=== PATIENT | male | born 1975 | race Caucasian/White ===

== ENCOUNTER 2018-05-01 19:00 | Outpatient (REF) | payer OTHER, SELFPAY ==
[2018-05-01 19:50] LABS: COMMENT (LAB VIEW ONLY) 142.09 mg/dL; Microalb ug/mg Crea 142.7 ug/mg Cr
== END 2018-05-01 19:20 ==
LOC: LBN 19:00
PROVIDERS: PCP Nurse Practitioner Family; Visit Provider Nurse Practitioner Family
DX: N18.9 Chronic kidney disease, unspecified (principal)
CPT/HCPCS: 82043; 82570

== ENCOUNTER 2018-05-30 01:36 | Outpatient (CLI) | payer OTHER, SELFPAY ==
[2018-05-30 12:26] LABS: Abs Immature Grans 0.02 k/cumm (0.0-0.09); Absolute Basophil Count 0.02 k/cumm (0.0-0.2); Absolute Eosinophil Count 0.09 k/cumm (0.0-0.7); Absolute Lymphocyte Count 1.45 k/cumm (1.2-3.4); Absolute Monocyte Count 0.47 k/cumm (0.11-0.7); Absolute Neutrophil Count 4.36 k/cumm (1.2-6.7); Basophils % 0.3; Eosinophils % 1.4; HCT 44.9 % (40.0-50.0); HGB 15.2 g/dL (13.5-17.5); Immature Grans % 0.3; Lymphocytes % 22.6; Mean Corp. HGB Concentration 33.9 g/dL (32.0-36.0); Mean Corpuscular Volume 85.7 fL (80-95); Mean Platelet Volume 11.4 fL (8.0-11.0); Monocytes % 7.3; Neutrophils % 68.1; Platelet Count 165 x1000/uL (130-400); RBC 5.24 m/cumm (4.50-6.00); RBC Distribution Width 13.6 % (11.8-14.1); White Blood Cell Count 6.41 k/cumm (4.4-10.8)
[2018-05-30 12:56] LABS: ALT 53 U/L (12-78); AST 31 U/L (15-37); Albumin 4.2 g/dL (3.4-5.0); Alkaline Phosphatase 76 U/L (46-116); Anion Gap 11.8 mmol/L (3-11); BUN 25 mg/dL (7-18); Bilirubin, Total 0.5 mg/dL (0.2-1.0); CO2 27.2 mmol/L (21.0-32.0); Calcium 9.7 mg/dL (8.5-10.1); Chloride 101 mmol/L (98-107); Cholesterol 264 mg/dL (50-200); Glucose 110 mg/dL (70-100); HDL Cholesterol 53 mg/dL (40-60); LDL CHOLESTEROL 192 mg/dL (<100); Potassium 4.7 mmol/L (3.5-5.1); Sodium 140 mmol/L (136-145); TSH 2.36 uIU/mL (0.358-3.74); Total Protein 7.7 g/dL (6.4-8.2); Triglyceride 120 mg/dL (30-150)
[2018-05-30 13:15] LABS: Hemoglobin A1C 6.5 % (4.5-6.2)
[2018-05-30 13:17] LABS: FREE T4 1.05 ng/dL (0.76-1.46)
== END 2018-05-30 01:56 ==
PROVIDERS: PCP Nurse Practitioner Family; Visit Provider Nurse Practitioner Family
DX: Z00.00 Encounter for general adult medical examination without abnormal findings (principal); E78.5 Hyperlipidemia, unspecified; N18.9 Chronic kidney disease, unspecified; R73.03 Prediabetes
CPT/HCPCS: 36415; 80053; 80061; 83721; 83036; 84439; 84443; 85025

== ENCOUNTER 2018-06-23 08:50 | Outpatient (CLI) | payer OTHER, SELFPAY ==
[2018-06-23 13:49] LABS: Anion Gap 10.4 mmol/L (3-11); BUN 17 mg/dL (7-18); CO2 26.6 mmol/L (21.0-32.0); CREATININE 1.36 mg/dL (0.70-1.30); Calcium 9.4 mg/dL (8.5-10.1); Chloride 103 mmol/L (98-107); Estimated GFR 56.67 (mL/min/1.73m2); Glucose 111 mg/dL (70-100); Potassium 4.2 mmol/L (3.5-5.1); Sodium 140 mmol/L (136-145)
== END 2018-06-23 09:10 ==
PROVIDERS: PCP Nurse Practitioner Family; Visit Provider Nurse Practitioner Family
DX: N18.9 Chronic kidney disease, unspecified (principal)
CPT/HCPCS: 36415; 80048

== ENCOUNTER 2018-09-05 02:21 | Outpatient (CLI) | payer OTHER, SELFPAY ==
--- NOTE | 2018-09-05 10:50 | DI.US_ITS ---
SYMPTOMS/DIAGNOSIS: LEFT TESTICULAR PAIN X 1 MONTH, N50.812, LIFTING INJURY IN JUNE LEFT INGUINAL ULTRASOUND: No hernia is identified. No adenopathy or fluid collection is seen. IMPRESSION: Negative left inguinal ultrasound.
== END 2018-09-05 02:41 ==
PROVIDERS: PCP Nurse Practitioner Family; Visit Provider Nurse Practitioner Family
DX: N50.812 Left testicular pain (principal)
CPT/HCPCS: 76857

== ENCOUNTER 2018-11-27 09:36 | Outpatient (CLI) | payer OTHER, SELFPAY ==
[2018-11-27 11:02] LABS: Hemoglobin A1C 6.2 % (4.5-6.2)
[2018-11-27 11:07] LABS: Anion Gap 13.3 mmol/L (3-11); BUN 16 mg/dL (7-18); CO2 27.7 mmol/L (21.0-32.0); CREATININE 1.28 mg/dL (0.70-1.30); Calcium 9.3 mg/dL (8.5-10.1); Calculated LDL 68 mg/dL; Chloride 101 mmol/L (98-107); Cholesterol 140 mg/dL (50-200); Glucose 103 mg/dL (70-100); HDL Cholesterol 49 mg/dL (40-60); Potassium 4.7 mmol/L (3.5-5.1); Sodium 142 mmol/L (136-145); Triglyceride 119 mg/dL (30-150)
== END 2018-11-27 09:56 ==
PROVIDERS: PCP Nurse Practitioner Family; Visit Provider Nurse Practitioner Family
DX: E11.9 Type 2 diabetes mellitus without complications (principal)
CPT/HCPCS: 36415; 80048; 80061; 83721; 83036

== ENCOUNTER 2019-02-04 18:52 | Emergency (ER) | payer OTHER, SELFPAY ==
[2019-02-04] VITALS (42 sets, daily range): BP systolic 117–153; BP diastolic 64–84; PULSE 55–83; RESP 4–27; TEMP 36.7–36.9; O2SAT 96–100
--- NOTE | 2019-02-04 19:07 | W.ED.GENAD ---
Discharge Plan Disposition Patient Disposition: HOME Condition: Good Discharge Details Chief Complaint: Chest Pain Clinical Impression: Chest pain Primary Care Provider: Tonia Marie ED Provider: Mayank Phillips [place] Meds and New Rx's Prescriptions: Continued rosuvastatin 10 mg tablet 10 mg PO DAILY Qty: 90 RF: 4 sucralfate 1 gram tablet 1 gm PO Q6H PRN (Reason: heartburn) Qty: 180 RF: 0 multivitamin [Daily Multi-Vitamin] 1 EACH tablet 1 ea PO DAILY RF: 0 losartan 25 mg tablet 25 mg PO DAILY Qty: 90 RF: 4 omeprazole 20 mg capsule,delayed release(DR/EC) 20 mg PO DAILY Qty: 180 RF: 0 Discharge Instructions Instructions: Chest Pain (ED) Additional Instructions: Your work-up tonight is reassuring. Your laboratory studies were good. EKG and troponin both normal. Chest x-ray suggestive of a density which will require outpatient CT scan to better delineate. You will need to follow-up with primary care next week to address further work-up of chest pain which could include cardiac ECHO and stress testing as well as the outpatient CT scan. Return to ED if you develop new or worsening chest pain especially if it is with exertion, shortness of breath, fevers, other concerns or problems. Referrals: Tonia Marie, HEADING AND PRIMING OPERATOR [Primary Care Provider] - Medical Decision Making <Dedrick Rodriguez MD - Last Filed: 02/04/19 19:45> 43 yo male with hx of htn, hld, nonsmoker, who comes in with anterior chest tightness and shortness of breath throughout the day today, had no symptoms today. Denies vomit, diaphoresis. He is in no distress on exam speaking in full sentences. HAs no respitoary distress, clear lungs, no murmurs, no jvd or peripheral edema. EKG shows no acute findings, heart score is 3, will send troponin. Wells score is low, will send d dimer to eval for PE. No tearing back pain and normal vascular exam so doubt dissection pt's initial troponin negative, given low heart score will repeat troponin. Pt will be signed out pending d dimer and troponin Differential Diagnosis Differential Diagnosis: esophagitis, acs, pe ECG Data Attestation: I personally reviewed and interpreted this ECG (s) as follows: Prior ECG tracings: not available for review Interpretation: sinus rhythm, rate of 65, pr 154, qtc 391 <Mayank Phillips MD - Last Filed: 02/04/19 23:12> Medical Records Medical records reviewed: Yes I reviewed the patient's medical records. Medical records narrative: Patient signed out to me pending lab results. He had presented with intermittent episodes of chest pain that is sharp in nature lasting 10 to 15 minutes at a time. No real associated symptoms. Initial work-up done by Dr. Rodriguez. He is low risk for PE by revised [place] score. His d-dimer is negative. Will not need to pursue PE work-up. HEART score is a 3. Repeat troponin and EKG remain normal. As he is low risk can refer to outpatient follow-up for possible stress testing and ECHO. Of note chest x-ray and follow-up chest x-ray with nipple markers suggest a density in the lingula lobe. Will need outpatient CT scan for further evaluation. I have discussed all results with the patient and his . He is discharged home to contact primary care for an appointment next week. Return to ED if he develops new or worsening pain, shortness of breath, fever, other concerns or problems. Lab Data Lab results reviewed: Yes I reviewed the patient's lab results. ECG Data Attestation: I personally reviewed and interpreted this ECG (s) as follows: Prior ECG tracings: available for review Interpretation: Sinus at 59. Normal axis and intervals. Normal ST segments. HPI <Dedrick Rodriguez MD - Last Filed: 02/04/19 19:45> General Mode of arrival: ambulatory. Date/Time Provider Initiated Documentation: 02/04/19 18:56. Limitations to Documentation: no limitations. Information obtained by: patient. History of Present Illness 43 year old M presents to the emergency department with the chief complaint of chest pain, described as moderate, with intensity rated at 4. Quality is described as aching, and is localized to the chest. Patient reports no radiation. Patient started experiencing this hour(s) (9) and it has been constant. No relieving factors improve symptom(s), No exacerbating factors reported . Patient notes shortness of breath. Patient did receive the following treatments prior to arrival, none Related Data Home Medications Medication Instructions Recorded Confirmed multivitamin [Daily Multi-Vitamin] 1 ea PO DAILY 09/12/15 02/04/19 rosuvastatin 10 mg tablet 10 mg PO DAILY #90 tab 06/09/18 02/04/19 losartan 25 mg tablet 25 mg PO DAILY #90 tab 06/16/18 02/04/19 sucralfate 1 gram tablet 1 gm PO Q6H PRN #180 tab 01/15/19 02/04/19 omeprazole 20 mg capsule,delayed 20 mg PO DAILY #180 cap 02/03/19 02/04/19 release Previous Rx's Medication Instructions Recorded rosuvastatin 10 mg tablet 10 mg PO DAILY #90 tab 06/09/18 losartan 25 mg tablet 25 mg PO DAILY #90 tab 06/16/18 sucralfate 1 gram tablet 1 gm PO Q6H PRN #180 tab 01/15/19 omeprazole 20 mg capsule,delayed 20 mg PO DAILY #180 cap 02/03/19 release Allergies Allergy/AdvReac Type Severity Reaction Status Date / Time ampicillin Allergy Intermediate RASH Unverified 02/04/19 18:59 lisinopril AdvReac Mild Cough Verified 02/04/19 18:59 General Stated Complaint: Chest Pain TRISTON: 2 Review of Systems <Dedrick Rodriguez MD - Last Filed: 02/04/19 19:45> Review of Systems ROS Unobtainable: All systems reviewed & are unremarkable except as noted in HPI and below Constitutional Constitutional: Denies chills, Denies fever(s) and Denies weakness ENT Ears, Nose, Mouth, and Throat: Denies change in voice Gastrointestinal Gastrointestinal: Denies abdominal pain, Denies nausea and Denies vomiting Neurologic Neurologic: Denies weakness PFS <Dedrick Rodriguez MD - Last Filed: 02/04/19 19:45> Social History (Updated 05/02/18 @ 10:08 by Ernestine Liriano) Smoking/Tobacco Use Status: Current-Occasional Tobacco Type: cigars Alcohol Intake: current Alcohol Intake frequency: a few times a month Drug use: Never Substance use type: does not use 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 Pets and animals: Yes Pets and animals: cat(s) and dog(s) Duration: decline to answer Frequency: decline to answer Nesha/Congregation: No preference Special nesha needs: No Do you feel safe at home: Yes Do you feel safe in your relationship?: Yes Exam <Dedrick Rodriguez MD - Last Filed: 02/04/19 19:45> Const General: no acute distress Orientation: alert [facility] Head: normal to inspection Ears: external ears normal General nose exam: external nose normal Mouth: moist mucous membranes Eyes General: appearance normal, both eyes and all related structures Neck Neck: normal visual inspection Resp Effort & Inspection: normal respiratory effort and able to speak in complete sentences Cardio Rate: regular rate Skin General skin exam: no rashes or lesions noted Neuro General: alert and oriented x3 Extrem General: normal to inspection Psych Mental Status: mental status grossly normal Course <Dedrick Rodriguez MD - Last Filed: 02/04/19 19:45> Vital Signs Vital signs: Vital Signs Temperature 36.9 C 02/04/19 18:55 Pulse 70 02/04/19 18:55 Respiratory Rate 27 H 02/04/19 18:55 Blood Pressure 153/80 H 02/04/19 18:55 Pulse Oximetry 99 02/04/19 18:55 Temperature 36.9 C 02/04/19 18:55 Temperature Source Skin 02/04/19 18:55 Pulse 70 02/04/19 18:55 Respiratory Rate 24 02/04/19 19:01 Respiratory Effort 02/04/19 19:01 Respiratory Depth Normal 02/04/19 19:01 Respiratory Pattern Tachypnea 02/04/19 19:01 Blood Pressure 153/80 H 02/04/19 18:55 Blood Pressure Position Sitting 02/04/19 18:55 Pulse Oximetry 99 02/04/19 18:55 Oxygen Delivery Method Room Air 02/04/19 18:55 Oxygen Flow Rate 0 02/04/19 18:55 Pain Level 6 02/04/19 18:55 Sign Out <Dedrick Rodriguez MD - Last Filed: 02/04/19 19:45> Sign Out Data: Sign Out Comment: follow up on delta troponin and d dimer and cxr results Last updated by Dedrick Rodriguez MD at 02/04/19 19:50
[2019-02-04] MEDS: Aspirin 81 MG CHEW 324 MG CH (19:13)
[2019-02-04 19:23] LABS: Abs Immature Grans 0.01 k/cumm (0.0-0.09); Absolute Basophil Count 0.02 k/cumm (0.0-0.2); Absolute Eosinophil Count 0.04 k/cumm (0.0-0.7); Absolute Lymphocyte Count 1.79 k/cumm (1.2-3.4); Absolute Monocyte Count 0.45 k/cumm (0.11-0.7); Absolute Neutrophil Count 3.76 k/cumm (1.2-6.7); Basophils % 0.3; Eosinophils % 0.7; HCT 40.9 % (40.0-50.0); Immature Grans % 0.2; Lymphocytes % 29.5; Mean Corp. HGB Concentration 34.2 g/dL (32.0-36.0); Mean Corpuscular Hemoglobin 28.6 pg (27.0-33.0); Mean Corpuscular Volume 83.5 fL (80-95); Mean Platelet Volume 10.6 fL (8.0-11.0); Monocytes % 7.4; Neutrophils % 61.9; Platelet Count 148 x1000/uL (130-400); RBC Distribution Width 13.5 % (11.8-14.1); White Blood Cell Count 6.07 k/cumm (4.4-10.8)
[2019-02-04 19:35] LABS: INR 1.1 (0.9-1.1); PTT Activated 25.9 sec (21.0-31.4); Prothrombin Time 11.3 sec (9.3-11.0)
[2019-02-04 19:39] LABS: ALT 34 U/L (16-63); AST 16 U/L (15-37); Albumin 4.3 g/dL (3.4-5.0); Alkaline Phosphatase 60 U/L (46-116); Anion Gap 10.9 mmol/L (3-11); BUN 10 mg/dL (7-18); Bilirubin, Total 0.6 mg/dL (0.2-1.0); CO2 26.1 mmol/L (21.0-32.0); CREATININE 1.48 mg/dL (0.70-1.30); Calcium 9.2 mg/dL (8.5-10.1); Chloride 104 mmol/L (98-107); Glucose 97 mg/dL (70-100); Lipase 122 U/L (73-393); Magnesium 1.9 mg/dL (1.8-2.4); Potassium 4.1 mmol/L (3.5-5.1); Sodium 141 mmol/L (136-145); Total Protein 7.4 g/dL (6.4-8.2)
[2019-02-04 19:41] LABS: Troponin I < 0.05 ng/mL (0.00-0.06)
--- NOTE | 2019-02-04 19:53 | DI.RAD_ITS ---
EXAM: XR CHEST 2V PA LATERAL INDICATION: chest pain. COMPARISON: No exams were available for comparison TECHNIQUE: 2D digital imaging was performed. FINDINGS: The lungs are well expanded and free of infiltrate. There is no evidence of a pneumothorax or pleura l effusion. There is a 1.5 cm density which silhouettes with the left cardiac border. No acute bony abnormality is demonstrated. IMPRESSION: There is a question of a 1.5 cm nodule projected over the region of the lingula which could represent a nipple shadow. A repeat examination with nipple markers is recommended. RADIATION DOSE DELIVERED: The lungs are well expanded and free of infiltrate there is no pleural eff usion the cardiovascular structures appear intact. Graph summary no evidence of acute cardiopulmonary disease.
[2019-02-04 20:10] LABS: D-Dimer 495 ng/mlFEU (<500)
--- NOTE | 2019-02-04 20:32 | DI.VRAD_ITS ---
PROCEDURE INFORMATION: Exam: XR Chest, 2 Views Exam date and time: 02/04/2019 7:55 PM Clinical history: 43 years old, male; Type not specified; Patient HX: Chest pain with every step x 4 days TECHNIQUE: Imaging protocol: XR of the chest Views: 2 views. COMPARISON: CR CHEST 2 VIEWS PA,LAT 10/17/2015 7:04 PM FINDINGS: Lungs: Unremarkable. No consolidation. Pleural space: Unremarkable. No pleural effusion. No pneumothorax. Heart/Mediastinum: New, 1.5 cm density silhouettes left heart border. Bones/joints: The spine demonstrates mild degenerative changes at multiple levels. IMPRESSION: New, 1.5 cm nodule cannot be excluded in lingula. Density could represent the left nipple. Study could be repeated with nipple markers in place. Alternatively, CT the chest could be performed. Dictated and Authenticated by: Leonard Gutierrez MD. Ordering:ZAIRE Tse MD
--- NOTE | 2019-02-04 22:16 | DI.RAD_ITS ---
EXAM: XR CHEST 1V IN DI DEPT INDICATION: ? nodule on earlier chest; nipple markers requested COMPARISON: XR CHEST 2V PA LATERAL from 02/04/2019 TECHNIQUE: 2D digital imaging was performed. FINDINGS: A follow up chest xray with nipple markers was obtained. The density appears to represent a nipple sh adow.
--- NOTE | 2019-02-04 22:23 | DI.VRAD_ITS ---
PROCEDURE INFORMATION: Exam: XR Chest, 1 View Exam date and time: 02/04/2019 10:15 PM Clinical history: 43 years old, male; Abnormal findings; Other: Nodule vs nipple; Additional info: Pa chest repeated with nipple markers in place TECHNIQUE: Imaging protocol: XR of the chest Views: 1 view. COMPARISON: CR XR CHEST 2V PA LATERAL 02/04/2019 7:55 PM FINDINGS: Lungs: Unremarkable. No consolidation. Pleural space: Unremarkable. No pleural effusion. No pneumothorax. Heart/Mediastinum: Area of interest silhouetting left heart border on the immediately preceding PA chest x-ray is inferior to the left nipple and could represent a lingular nodule. Bones/joints: Unremarkable. IMPRESSION: Area of interest silhouetting left heart border is not the left nipple. CT could be performed for further evaluation. Dictated and Authenticated by: Leonard Gutierrez MD. Ordering:SEBAS Talley MD
[2019-02-04 22:33] LABS: Troponin I < 0.05 ng/mL (0.00-0.06)
== END 2019-02-04 23:10 | disposition home or self-care (01) ==
PROVIDERS: Emergency Medicine; Emergency Provider Emergency Medicine; PCP Nurse Practitioner Family
DX: R07.9 Chest pain, unspecified (principal); F17.210 Nicotine dependence, cigarettes, uncomplicated
CPT/HCPCS: 36415; 80053; 83690; 93005; 99285; 71045; 71046; 83735; 84484; 85025; 85379; 85610; 85730; 93010; J3490

== ENCOUNTER 2020-01-04 09:42 | Outpatient (CLI) | payer BC, SELFPAY ==
[2020-01-04 12:56] LABS: Hemoglobin A1C 6.1 % (3.8-5.6)
[2020-01-04 12:58] LABS: Anion Gap 6.2 mmol/L (3-11); BUN 15 mg/dL (7-18); CO2 28.8 mmol/L (21.0-32.0); CREATININE 1.25 mg/dL (0.70-1.30); Calcium 9.1 mg/dL (8.5-10.1); Calculated LDL 86 mg/dL (<100); Chloride 108 mmol/L (98-107); Cholesterol 152 mg/dL (<200); Glucose 114 mg/dL (74-106); HDL Cholesterol 52 mg/dL (40-60); Potassium 5.3 mmol/L (3.5-5.1); Sodium 143 mmol/L (136-145); Triglyceride 71 mg/dL (<150)
== END 2020-01-04 10:02 ==
PROVIDERS: PCP Nurse Practitioner Family; Visit Provider Nurse Practitioner Family
DX: R73.03 Prediabetes (principal)
CPT/HCPCS: 36415; 80048; 80061; 83036

== ENCOUNTER 2020-02-01 02:16 | Outpatient (CLI) | payer BC, SELFPAY ==
[2020-02-01 09:14] LABS: Anion Gap 10.3 mmol/L (3-11); BUN 17 mg/dL (7-18); CO2 25.7 mmol/L (21.0-32.0); Calcium 8.9 mg/dL (8.5-10.1); Chloride 105 mmol/L (98-107); Estimated GFR 54.56 (mL/min/1.73m2); Glucose 120 mg/dL (74-106); Potassium 4.3 mmol/L (3.5-5.1); Sodium 141 mmol/L (136-145)
== END 2020-02-01 02:36 ==
PROVIDERS: PCP Nurse Practitioner Family; Visit Provider Nurse Practitioner Family
DX: E87.5 Hyperkalemia (principal)
CPT/HCPCS: 36415; 80048

== ENCOUNTER 2020-07-22 03:37 | Outpatient (CLI) | payer BC, SELFPAY ==
[2020-07-22 12:43] LABS: Anion Gap 13.1 mmol/L (3-11); BUN 19 mg/dL (7-18); CO2 23.9 mmol/L (21.0-32.0); CREATININE 1.3 mg/dL (0.70-1.30); Calcium 9.7 mg/dL (8.5-10.1); Calculated LDL 89 mg/dL (<100); Chloride 104 mmol/L (98-107); Cholesterol 169 mg/dL (<200); Estimated GFR 59.17 (mL/min/1.73m2); Glucose 100 mg/dL (74-106); HDL Cholesterol 63 mg/dL (40-60); Potassium 4.2 mmol/L (3.5-5.1); Sodium 141 mmol/L (136-145); Triglyceride 86 mg/dL (<150)
== END 2020-07-22 03:38 | disposition home or self-care (01) ==
LOC: LBO 03:37
PROVIDERS: PCP Nurse Practitioner Family; Visit Provider Nurse Practitioner Family
DX: E78.5 Hyperlipidemia, unspecified (principal); I10 Essential (primary) hypertension
CPT/HCPCS: 36415; 80048; 80061

== ENCOUNTER 2020-10-04 03:07 | Outpatient (CLI) | payer BC, SELFPAY ==
[2020-10-05 13:44] LABS: COVID-19 RT-PCR UVMMC Result Negative (Negative)
== END 2020-10-04 03:08 | disposition home or self-care (01) ==
PROVIDERS: PCP Nurse Practitioner Family; Visit Provider Nurse Practitioner Family
DX: Z20.822 Contact with and (suspected) exposure to COVID-19 (principal)
CPT/HCPCS: U0003

== ENCOUNTER 2020-11-09 18:38 | Outpatient (REF) | payer BC, SELFPAY ==
[2020-11-11 12:55] LABS: COVID-19 RT-PCR UVMMC Result Negative (Negative)
== END 2020-11-09 18:39 | disposition home or self-care (01) ==
LOC: LBN 18:38
PROVIDERS: PCP Nurse Practitioner Family; Visit Provider Nurse Practitioner Family
DX: Z20.822 Contact with and (suspected) exposure to COVID-19 (principal)
CPT/HCPCS: U0003

== ENCOUNTER 2020-11-23 20:05 | Outpatient (REF) | payer BC, SELFPAY ==
[2020-11-25 10:47] LABS: Lyme Ab w Rflx to Lyme Confirm Negative (Negative)
[2020-11-25 19:51] LABS: Anaplasma phagocytophilum Negative (Negative); B. miyamotoi PCR Negative (Negative); Babesia divergens/MO-1 Negative (Negative); Babesia duncani Negative (Negative); Babesia microti Negative (Negative); Ehrlichia chaffeensis Negative (Negative); Ehrlichia ewingii/canis Negative (Negative); Ehrlichia muris eauclairensis Negative (Negative)
== END 2020-11-23 20:06 | disposition home or self-care (01) ==
LOC: NCHCN 20:05
PROVIDERS: PCP Nurse Practitioner Family; Visit Provider Nurse Practitioner Family
DX: S30.860A Insect bite (nonvenomous) of lower back and pelvis, initial encounter (principal); W57.XXXA Bitten or stung by nonvenomous insect and other nonvenomous arthropods, initial encounter; Y99.8 Other external cause status
CPT/HCPCS: 87798; 86618

== ENCOUNTER 2022-09-04 14:11 | Outpatient (CLI) | payer BC, SELFPAY ==
--- OUTSIDE RECORDS SUMMARY | 2022-09-04 14:31 | XMS_ITS | Continuity of Care Document ---
Author Name Unknown Organization [facility] Occupationa l Health Address [address] [place] [address] Encounter [facility] FIN NBR [id number] Date(s): 08/27/22 - 08/27/22 [facility] Occupational Health [address] [place], [place] [address] Encounter Diagnosis Wrist strain(Discharge Diagnosis) - 08/27/22 Discharge Disposition: Home or Self Care Attending Physician: Ju Mccurdy APRN Allergies, Adverse Reactions, Alerts Substance Reaction Severity Status ampicillin Unknown Active Assessment and Plan Future Appointments Functional Status 08/27/22 Other exposure to Infectious Disease Non e Medications losartan 100 mg oral tablet 0 Refill(s) Start Date: 08/20/22 Status: Ordered omeprazole 20 mg oral delayed release capsule 0 Refill(s) Start Date: 08/20/22 Status: Ordered rosuvastatin 10 mg oral tablet 10 mg = 1 tab, Oral, Daily, # 30 tab, 0 Refill(s) Start Date: 08/20/22 Status: Ordered Problem List Condition Confirmation Course Effective Dates Status Health [facility] Informant Sleep apnea Confirmed Active Vital Signs Most recent to oldest [Reference Range]: 1 Peripheral Pulse Rate [60-100 bpm] 74 bp m (08/27/22 10:10 AM) Blood Pressure [90-140/60-90 mmHg] 161/8 4mmHg *HI* (08/27/22 10:10 AM) Weight 167.83 kg (08/27/22 10:10 AM) Weight Measured (lbs) 370.001 lb (08/27/22 10:10 AM) Height 182.88 cm (08/27/22 10:10 AM) Height/Length Measured (inches) 72 inch (08/27/22 10:10 AM) BSA Measured 2.92 m2 (08/27/22 10:10 AM) Body Mass Index 50.18 kg/m2 (08/27/22 10:10 AM) Social History Social History Type Response Tobacco Current some day tob acco user Tobacco Use:. Sex Physician Outpatient Note * Ju Mccurdy APRN: PERFORM Event Display: Office Clinic Note Physician Authored Date: [id number] ARMANDO HENDERSON :1975 Age:47 years Sex:Male Visit Date:08/27/2022 Chief Complaint wc follow up pt reports improvement in strength in the right wrist, still somewhat painful History of Present Illness Patient is a 47-year-old male who presents today for a recheck of his right wrist. ??He was evaluated approximately 1 week ago??for a wrist strain, has been placed in a??Velcro immobilization splint with good effect. ??He states that he has decreased pain??still has mild lateral/ulnar??wrist discomfort. ??He has been utilizing his splint??with good effect. Review of Systems Review of systems is negative unless otherwise indicated Physical Exam Vitals & Measurements HR:??74??(Peripheral)?? BP:??161/84?? SpO2:??98%?? HT:??182.88??cm?? WT:??167.83??kg?? BMI:??50.18?? Pain Score:??4?? BSA:??2.92?? Wrist is without any swelling or ecchymosis,??range of motion is intact, there is still palpable tenderness over the??ulnar surface of the wrist. Medical Decision Making: Patient was evaluated??for a recheck of a wrist injury. ??He has had improvement over the last week. ??We had a discussion on whether watchful waiting for another week would be appropriate or if referral to physical therapy would be in his best interest. ??Given his improvement over the last 7 days??we decided to give it another week of supportive care??and??change course of treatment after recheck next week.?? See scanned paperwork for modification Assessment/Plan 1.??Wrist strain??S66.786Q Problem List/Past Medical History Ongoing Morbid obesity Sleep apnea Historical No qualifying data Medications losartan 100 mg oral tablet omeprazole 20 mg oral delayed release capsule rosuvastatin 10 mg oral tablet, 10 mg= 1 tab, Oral, Daily Allergies ampicillin Social History Electronic Cigarette/Vaping Electronic Cigarette Use: Never. Tobacco Current some day tobacco user Tobacco Use:. Electronically Signed on 08/27/22 06:06 PM Ju Mccurdy APRN
--- OUTSIDE RECORDS SUMMARY | 2022-09-04 14:31 | XMS_ITS | Continuity of Care Document ---
Author Name Unknown Organization [facility] Address [address] [place] [address] Encounter [facility] FIN NBR [id number] Date(s): 08/20/22 - 08/20/22 [facility] [address] [place] [address]- Discharge Disposition: Home or Self Care Attending Physician: Ju Mccurdy APRN Admitting Physician: Ju Mccurdy APRN Allergies, Adverse Reactions, Alerts Substance Reaction Severity Status ampicillin Unknown Active Assessment and Plan Future Appointments Medications losartan 100 mg oral tablet 0 [...] [facility] Sleep apnea Confirmed Active Results Radiology Reports * Exam Date Time Procedure Performing Provider Status 08/20/22 1:06 PM XR Wrist Complete 3+ Views Right Lisandro Petersen (Verified) Notes: (XR Wrist Complete 3+ Views Right) Reason For Exam: pain XR Wrist Complete 3+ Views Right EXAM DESCRIPTION: XR Wrist Complete 3+ Views Right 08/20/2022 INDICATION: PAIN COMPARISON: None IMPRESSION: No acute fracture or dislocation Corticated osseous density adjacent to the dorsal aspect of the carpus on the lateral view which may reflect sequela of old injury No significant regional arthritic changes No regional radiopaque soft tissue foreign body. JOB #: [id number] Final Signed by: Ramy Burgess MD Signed (Electronic Signature): 08/20/2022 1:16 pm Social History Social History Type Response Tobacco Current some day tob acco user Tobacco Use:. Sex XR Wrist - right GE 3 Views * Ramy Burgess MD: VERIFY, VERIFY Event Display: Report EXAM DESCRIPTION: XR Wrist Complete 3+ Views Right 08/20/2022 INDICATION: PAIN COMPARISON: None IMPRESSION: No acute fracture or dislocation Corticated osseous density adjacent to the dorsal aspect of the carpus on the lateral view which may reflect sequela of old injury No significant regional arthritic changes No regional radiopaque soft tissue foreign body. JOB #: [id number] Final Signed by: Ramy Burgess MD Signed (Electronic Signature): 08/20/2022 1:16 pm
--- OUTSIDE RECORDS SUMMARY | 2022-09-04 14:32 | XMS_ITS | Continuity of Care Document ---
Author Name Unknown Organization [facility] Occupationa l Health Address [address] [place] [address] Encounter [facility] FIN NBR [id number] Date(s): 08/20/22 - 08/20/22 [facility] Occupational Health [address] [place], [place] [address] Encounter Diagnosis Wrist joint pain(Discharge Diagnosis) - 08/20/22 Discharge Disposition: Home or Self Care Attending Physician: Ju Mccurdy APRN Allergies, Adverse Reactions, Alerts Substance Reaction Severity Status ampicillin Unknown Active Assessment and Plan Future Appointments Functional Status 08/20/22 Other exposure to Infectious Disease Non e [...] Range]: 1 Peripheral Pulse Rate [60-100 bpm] 72 bp m (08/20/22 12:26 PM) Blood Pressure [90-140/60-90 mmHg] 157/8 7mmHg *HI* (08/20/22 12:26 PM) Weight 167.83 kg (08/20/22 12:26 PM) Weight Measured (lbs) 370.001 lb (08/20/22 12:26 PM) Height 182.88 cm (08/20/22 12:26 PM) Height/Length Measured (inches) 72 inch (08/20/22 12:26 PM) BSA Measured 2.92 m2 (08/20/22 12:26 PM) Body Mass Index 50.18 kg/m2 (08/20/22 12:26 PM) Social History Social History Type Response Tobacco Current some day tob acco user Tobacco Use:. Sex Physician Outpatient Note * Ju Mccurdy APRN: PERFORM Event Display: Office Clinic Note Physician Authored Date: [id number] BEATRIZ ARMANDO Urszula :1975 Age:47 years Sex:Male Visit Date:08/20/2022 Chief Complaint wc initital pt reports he was stepping down from bucket and injured right wrist on handrail incident happened at about 930am today History of Present Illness Patient is a 47-year-old male who presents today with chief complaint of right wrist??pain. 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 ??He states he has pain with flexion??and extension of the wrist that radiates down along the ulnar surface of the arm. ??He denies any numbness or tingling. ??Denies any recent??injury??or past injury. Review of Systems Review of systems is negative unless otherwise indicated Physical Exam Vitals & Measurements HR:??72??(Peripheral)?? BP:??157/87?? SpO2:??98%?? HT:??182.88??cm?? WT:??167.83??kg?? BMI:??50.18?? Pain Score:??9?? BSA:??2.92?? Right wrist any erythema, ecchymosis, no obvious swelling. ??There is palpable tenderness to the ulnar collateral ligament. + CSM, PP Medical Decision Making: Patient was evaluated for??wrist??pain. ??Physical exam does note some tenderness to the distal??ulnar/collateral ligament. ??X-ray was obtained which is negative for acute dislocation or fracture. ??He was placed in a??Velcro wrist splint for support and comfort. ??I recommended that he utilize the splint over the next 5 to 7 days, incorporating Tylenol/ibuprofen, rest/ice??and follow-up in a week. ??He??was provided modification for his employment. ??See scanned documents. Assessment/Plan 1.??Wrist joint pain??M25.539 Problem List/Past Medical History Ongoing Morbid obesity Sleep apnea Historical No qualifying data Medications losartan 100 mg oral tablet omeprazole 20 mg oral delayed release capsule rosuvastatin 10 mg oral tablet, 10 mg= 1 tab, Oral, Daily Allergies ampicillin Social History Electronic Cigarette/Vaping Electronic Cigarette Use: Never. Tobacco Current some day tobacco user Tobacco Use:. Electronically Signed on 08/20/22 05:28 PM Ju Mccurdy APRN
[2022-09-04 15:11] LABS: Hemoglobin A1C 6.7 % (<5.7)
[2022-09-04 15:14] LABS: ALT 51 U/L (16-63); AST 25 U/L (15-37); Albumin 3.9 g/dL (3.4-5.0); Alkaline Phosphatase 74 U/L (46-116); Anion Gap 8.7 mmol/L (3-11); BUN 15 mg/dL (7-18); Bilirubin, Total 0.2 mg/dL (0.2-1.0); CO2 27.3 mmol/L (21.0-32.0); CREATININE 1.7 mg/dL (0.70-1.30); Calcium 8.8 mg/dL (8.5-10.1); Calculated LDL 58 mg/dL (<100); Chloride 106 mmol/L (98-107); Cholesterol 172 mg/dL (<200); Estimated GFR 48.81 (mL/min/1.73m2); Glucose 101 mg/dL (74-106); HDL Cholesterol 49 mg/dL (40-60); Potassium 4.7 mmol/L (3.5-5.1); Sodium 142 mmol/L (136-145); Total Protein 7.2 g/dL (6.4-8.2); Triglyceride 328 mg/dL (<150)
== END 2022-09-04 14:12 | disposition home or self-care (01) ==
LOC: LBO 14:17
PROVIDERS: PCP Nurse Practitioner Family; Visit Provider Nurse Practitioner Family
DX: E78.5 Hyperlipidemia, unspecified (principal); R73.03 Prediabetes; N18.9 Chronic kidney disease, unspecified
CPT/HCPCS: 36415; 80053; 80061; 83036

== ENCOUNTER 2023-06-21 15:47 | Outpatient (REF) | payer BC, SELFPAY | END 2023-06-21 15:48 | disposition home or self-care (01) | LOC: LBN 15:47 | PROVIDERS: PCP Nurse Practitioner Family; Visit Provider Physician Assistant | DX: R30.0 Dysuria (principal) | CPT/HCPCS: 87086 ==

== ENCOUNTER 2023-07-01 10:36 | Outpatient (CLI) | payer BC, SELFPAY ==
[2023-07-01 12:18] LABS: Abs Immature Grans 0.02 10^3/uL (0.0-0.06); Absolute Basophil Count 0.05 10^3/uL (0.0-0.2); Absolute Eosinophil Count 0.07 10^3/uL (0.0-0.7); Absolute Lymphocyte Count 1.36 10^3/uL (1.2-3.4); Absolute Monocyte Count 0.36 10^3/uL (0.1-0.8); Absolute Neutrophil Count 3.77 10^3/uL (1.2-6.7); Basophils % 0.9; Eosinophils % 1.2; HCT 40.8 % (40.0-50.0); HGB 13.3 g/dL (13.5-17.5); Immature Grans % 0.4; Lymphocytes % 24.2; MCH 27.8 pg (27.0-33.0); MCHC 32.6 % (32.0-36.0); MCV 85 fL (80-95); MPV 10.6 fL (8.0-11.0); Monocytes % 6.4; Neutrophils % 66.9; Platelet Count 156 10^3/uL (130-400); RBC 4.79 10^6/uL (4.36-5.78); RDW 13.4 % (11.8-14.1); RDW-SD 42.1 fL; WBC 5.63 10^3/uL (4.4-10.8)
[2023-07-01 12:45] LABS: ALT 47 U/L (16-63); AST 23 U/L (15-37); Albumin 3.9 g/dL (3.4-5.0); Alkaline Phosphatase 77 U/L (46-116); BUN 14 mg/dL (7-18); Bilirubin, Total 0.3 mg/dL (0.2-1.0); CREATININE 1.3 mg/dL (0.70-1.30); Calcium 9.3 mg/dL (8.5-10.1); Chloride 105 mmol/L (98-107); Estimated GFR 66.93 (mL/min/1.73m2); Glucose 105 mg/dL (74-106); Potassium 4.3 mmol/L (3.5-5.1); Sodium 142 mmol/L (136-145); Total Protein 7.3 g/dL (6.4-8.2)
[2023-07-01 12:58] LABS: Hemoglobin A1C 6.1 % (<5.7)
[2023-07-01 14:47] LABS: Bilirubin Negative (Negative); Blood Negative (Negative); Clarity Clear (Clear); Glucose Negative (Negative); Ketones Negative (Negative); Leukocyte Esterase Negative (Negative); Nitrite Negative (Negative); Urobilinogen 0.2 mg/dL (Up to 0.2); pH 5.5 (5-8)
[2023-07-01 14:59] LABS: Bacteria Negative HPF (Negative); C & S Indicated? No; Casts 0-2 Hyaline LPF (Negative); Crystals Negative HPF (Negative); Epithelial Cells Rare HPF (Negative); Mucus Negative (Negative); RBC Negative HPF (0-2); WBC Negative HPF (0-5)
[2023-07-01 15:06] LABS: COMMENT (LAB VIEW ONLY) 162.74 mg/dL
[2023-07-01 15:16] LABS: Microalb ug/mg Crea 96.9 ug/mg Cr
[2023-07-01 18:17] LABS: PSA, Screening 0.3 ng/mL (<=3.5)
[2023-07-01 18:52] LABS: Hepatitis C Ab w Rflx HCV PCR Negative (Negative)
== END 2023-07-01 10:37 | disposition home or self-care (01) ==
LOC: LOS 10:36
PROVIDERS: PCP Nurse Practitioner Family; Referring Provider Nurse Practitioner Family; Visit Provider Nurse Practitioner Family
DX: Z00.00 Encounter for general adult medical examination without abnormal findings (principal); R31.0 Gross hematuria; Z12.5 Encounter for screening for malignant neoplasm of prostate; Z11.59 Encounter for screening for other viral diseases
CPT/HCPCS: 36415; 80053; 84153; 86803; 81003; 81015; 82043; 82570; 83036; 85025

== ENCOUNTER 2024-07-29 07:57 | Outpatient (CLI) | payer BC, SELFPAY ==
[2024-07-29 12:16] LABS: HCT 42.9 % (40.0-50.0); HGB 14.2 g/dL (13.5-17.5); MCH 28.5 pg (27.0-33.0); MCHC 33.1 % (32.0-36.0); MCV 86 fL (80-95); MPV 11.3 fL (8.0-11.0); Platelet Count 157 10^3/uL (130-400); RBC 4.98 10^6/uL (4.36-5.78); RDW 13.5 % (11.8-14.1); WBC 6.39 10^3/uL (4.4-10.8)
[2024-07-29 12:29] LABS: ALT 37 U/L (16-63); AST 19 U/L (15-37); Albumin 4.1 g/dL (3.4-5.0); Alkaline Phosphatase 69 U/L (46-116); Anion Gap 4.1 mmol/L (3-11); BUN 15 mg/dL (7-18); Bilirubin, Total 0.6 mg/dL (0.2-1.0); CO2 32.9 mmol/L (21.0-32.0); CREATININE 1.4 mg/dL (0.70-1.30); Calcium 9.4 mg/dL (8.5-10.1); Chloride 106 mmol/L (98-107); Estimated GFR 60.85 (mL/min/1.73m2); Glucose 72 mg/dL (74-106); PHOSPHORUS 3.4 mg/dL (2.6-4.7); Potassium 4.5 mmol/L (3.5-5.1); Sodium 143 mmol/L (136-145); Total Protein 7.4 g/dL (6.4-8.2); Uric Acid 6.6 mg/dL (3.5-7.2)
[2024-07-29 13:15] LABS: Calculated LDL 63 mg/dL (<100); Cholesterol 138 mg/dL (<200); HDL Cholesterol 57 mg/dL (>or=40); Triglyceride 90 mg/dL (<150); Vitamin D 25 Total 21 ng/mL (30-100)
[2024-07-29 18:22] LABS: Parathyroid Hormone,Intact 94.2 pg/mL (19.0-88.0)
[2024-07-29 18:32] LABS: HBs Antibody, Quant 7.7 mIU/mL (See Note); Hep B Surface Ab Negative (See Note); Hepatitis B Core Antibody Negative (Negative); Hepatitis B Surface Antigen Negative (Negative)
[2024-07-31 00:48] LABS: Cystatin C, S 1.13 mg/L; eGFR by Cystatin C 69 mL/min/BSA (>60)
== END 2024-07-29 07:58 | disposition home or self-care (01) ==
LOC: LOS 07:57
PROVIDERS: PCP Nurse Practitioner Family; Referring Provider Nurse Practitioner Family; Visit Provider Nurse Practitioner Family
DX: N18.30 Chronic kidney disease, stage 3 unspecified (principal); E11.9 Type 2 diabetes mellitus without complications; Z11.59 Encounter for screening for other viral diseases
CPT/HCPCS: 36415; 80053; 80061; 82306; 82610; 85027; 86704; 86706; 87340; 83970; 84100; 84550

== ENCOUNTER 2024-07-29 08:17 | Outpatient (REF) | payer BC, SELFPAY ==
[2024-07-29 12:44] LABS: COMMENT (LAB VIEW ONLY) 222.28 mg/dL; PROTEIN 32.2 mg/dL; Prot/Crea Ur Ratio 0.14
[2024-07-29 12:54] LABS: COMMENT (LAB VIEW ONLY) 217.79 mg/dL
== END 2024-07-29 08:18 | disposition home or self-care (01) ==
LOC: LBN 08:17
PROVIDERS: PCP Nurse Practitioner Family; Visit Provider Nurse Practitioner Family
DX: N18.30 Chronic kidney disease, stage 3 unspecified (principal); E11.9 Type 2 diabetes mellitus without complications
CPT/HCPCS: 82043; 82565; 82570; 84156